=== PATIENT | male | born 2000 | race Caucasian/White ===

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

== ENCOUNTER 2020-07-16 21:26 | Emergency (ER) | payer OTHER, SELFPAY ==
[2020-07-16 21:32] VITALS: BP 140/82; PULSE 75; RESP 16; TEMP 36.6; O2SAT 100
--- NOTE | 2020-07-16 21:53 | ED.GENADULT ---
HPI - General Adult General Chief complaint: Skin/Abscess/Foreign Body Stated complaint: fishhook in leg Time Seen by Provider: 07/16/20 21:38 Source: patient History of Present Illness HPI narrative: Patient is a 19 y/o male complaining of fish hook stuck in his left lower leg less than 1 hour ago. He states that he tripped over a wire and the lure was stuck in his leg. He denies any other injury. Related Data Home Medications Medication Instructions Recorded Confirmed dextroamphetamine-amphetamine 07/23/19 Allergies Allergy/AdvReac Type Severity Reaction Status Date / Time No Known Allergies Allergy Unknown Verified 04/22/17 14:16 Review of Systems Constitutional: Constitutional: Denies chills, Denies fever(s), Denies headache(s) and Denies weakness Eyes: Eyes: Denies blurry vision ENT: Denies headache(s) and Denies neck pain Cardiovascular: Cardiovascular: Denies chest pain and Denies dyspnea Respiratory: Respiratory: Denies cough and Denies dyspnea Gastrointestinal: Gastrointestinal: Denies abdominal pain, Denies diarrhea, Denies nausea and Denies vomiting Genitourinary: Genitourinary: Denies hematuria and Denies dysuria Musculoskeletal: Musculoskeletal: Denies back pain and Denies neck pain Integumentary/Breasts: Skin/Breast: Reports other (hook stuck in left leg) Neurologic: Denies headache(s) and Denies weakness [facility] Family History Family History Other No active medical problems Social History Social History Smoking status: Never smoker Alcohol intake: never Exam Const: General: no acute distress and well developed Orientation/consciousness: oriented to person, oriented to place, oriented to time and patient oriented x3 HENMT: Head: normocephalic Eyes: General: appearance normal, both eyes and all related structures Conjunctivae: conjunctivae normal Skin: General skin exam: normal color and turgor normal Wounds: wounds noted (puncture wound left lower leg with hook stuck) Extrem: General: full ROM and no pedal edema Psych: Appearance: grossly normal Mental Status: mental status grossly normal Affect: normal affect Course Vital Signs Vital signs: Vital Signs Temperature 36.6 C 07/16/20 21:32 Pulse Rate 75 07/16/20 21:32 Respiratory Rate 16 07/16/20 21:32 Blood Pressure 140/82 07/16/20 21:32 Pulse Oximetry 100 07/16/20 21:32 Temperature 36.6 C 07/16/20 21:32 Pulse Rate 75 07/16/20 21:32 Respiratory Rate 16 07/16/20 21:32 Blood Pressure 140/82 07/16/20 21:32 Pulse Oximetry 100 07/16/20 21:32 Procedures Foreign Body Removal Foreign Body #1: Foreign Body Removal Date: 07/16/20 Foreign Body Removal Time: 21:50 Time Out Performed: yes Site: left Description of foreign body: fish hook Sedation/Analgesia: none Technique: incision made to facilitate removal Confirmed by:: direct visualization Complications: none Post-procedure exam: awake, alert Neurovascular: normal distal pulse Foreign Body Removal Narrative: 1% lidocaine is injected into puncture wound. Wound is enlarged with 18 G needle. The tip of hook is cut with pliers and hook is removed with forceps. Medical Decision Making Vital Signs Vital Signs: Vital Signs Temperature 36.6 C 07/16/20 21:32 Pulse Rate 75 07/16/20 21:32 Respiratory Rate 16 07/16/20 21:32 Blood Pressure 140/82 07/16/20 21:32 Pulse Oximetry 100 07/16/20 21:32 Temperature 36.6 C 07/16/20 21:32 Pulse Rate 75 07/16/20 21:32 Respiratory Rate 16 07/16/20 21:32 Blood Pressure 140/82 07/16/20 21:32 Pulse Oximetry 100 07/16/20 21:32 Discharge Plan Discharge Clinical Impression: Foreign body (FB) in soft tissue Fish hook injury of left lower leg Qualifiers: Encounter type: initial enc
[2020-07-16] MEDS: TETANUS,DIPHTHERIA,AC PERTUSSIS ADULT (0.5 ML) BOOSTRIX IM (21:56)
--- NOTE | 2020-07-16 22:08 | PC.NURSE ---
Fishing hook removed by NEVILLE Gonzales. Pt tolerated well. Wound cleaned with normal saline and dressed with antibiotic ointment and gauze.
== END 2020-07-16 22:09 | disposition home or self-care (01) ==
LOC: ANHED 22:06
PROVIDERS: Emergency Provider Emergency Medicine; PCP Pediatrics
DX: S80.852A Superficial foreign body, left lower leg, initial encounter (principal); W45.8XXA Other foreign body or object entering through skin, initial encounter; Z23 Encounter for immunization
CPT/HCPCS: 10120; 90471; 90715; 99283

== ENCOUNTER 2022-03-26 18:25 | Emergency (ER) | payer OTHER, SELFPAY ==
[2022-03-26 18:34] VITALS: BP 148/86; PULSE 80; RESP 16; TEMP 36.1; O2SAT 99
--- NOTE | 2022-03-26 19:07 | ED.ANIMALBIT ---
HPI - Animal Bite General Chief Complaint: Animal Bite Stated Complaint: DOG BITE Time Seen by Provider: 03/26/22 19:07 Source: patient Mode of arrival: ambulatory Limitations: no limitations History of Present Illness HPI narrative: 21-year-old male presents with complaint of dog bite to right lower leg. Patient states he was walking home and neighbor's dog bit him after his cousin pulled into driveway and started talking ordered. States that the or talking startled the dog. Per the neighbor the dog is up-to-date on vaccines. Patient's tetanus is up-to-date. Ambulatory with limp. Bleeding controlled on arrival. All systems reviewed and negative except as noted above. Related Data Allergies Allergy/AdvReac Type Severity Reaction Status Date / Time No Known Allergies Allergy Unknown Verified 03/26/22 19:19 Review of Systems Review of Systems: CONSTITUTIONAL: Denies fever, chills, or sweats. EYES: Denies visual changes, redness, or discharge. ENT: Denies rhinorrhea, congestion, sore throat, or otalgia. CARDIOVASCULAR: Denies chest pain, palpitations, or edema. RESPIRATORY: Denies cough or dyspnea. GASTROINTESTINAL: Denies abdominal pain, nausea, vomiting, or diarrhea. GENITOURINARY: Denies dysuria or hematuria. SKIN: Denies rash or itching. Reports dog bite to right lower leg. MUSCULOSKELETAL: Denies back pain, joint pain, or myalgia. NEUROLOGIC: Denies headache, numbness, or weakness. PSYCHIATRIC: Denies anxiety or depression. All other systems reviewed are negative, except as documented in HPI. PMFSH Family History Family History Other No active medical problems Social History Social History Smoking status: Never smoker Alcohol intake: never Living arrangements: with family Occupation/Education: student Comments At time of signature, agree with nursing past medical, surgical, social and family history. There is no relevant family history pertinent to the presenting complaint. Exam Narrative: GENERAL: This is a well-nourished, well-developed patient, in no apparent distress. HEAD: normocephalic, atraumatic. EYES: PERRL. Sclera clear/white. Vision is grossly intact. EARS: External ears normal NOSE: External nose normal NECK: Neck supple, non-tender without lymphadenopathy, masses or thyromegaly. CARDIOVASCULAR: Regular rate and rhythm without murmurs, gallops, or rubs. RESPIRATORY: Clear to auscultation. Breath sounds equal bilaterally. No wheezes, rales, or rhonchi. SKIN: warm, Dry, with no suspicious lesions or rash, good texture and turgor. Two superficial puncture wounds to right lower extremity. 1 anterior ankle and 1 posterior ankle. There is a no other anterior puncture that is approximately 1 cm x 0.5 cm. Adipose tissue noted. NEURO: awake, alert, and oriented to person, place and time. There were no obvious focal neurologic abnormalities. EXTREMITIES: No joint tenderness, effusion, or edema noted. Course Course Level of Care: Express Care Visit Vital Signs Vital signs: Vital Signs Temperature 36.1 C L 03/26/22 18:34 Pulse Rate 80 03/26/22 18:34 Respiratory Rate 16 03/26/22 18:34 Blood Pressure 148/86 H 03/26/22 18:34 Pulse Oximetry 99 03/26/22 18:34 Oxygen Delivery Room Air 03/26/22 18:34 Temperature 36.1 C L 03/26/22 18:34 Pulse Rate 80 03/26/22 18:34 Respiratory Rate 16 03/26/22 18:34 Blood Pressure 148/86 H 03/26/22 18:34 Pulse Oximetry 99 03/26/22 18:34 Oxygen Delivery Room Air 03/26/22 18:34 Reviewed Procedures Laceration Laceration 1: Date: 03/26/22 Time: 19:27 Site: lower extremity Side (If applicable): right Size (cm): 1 Description: irregular Depth: simple, single layer ====== Skin Level ====== Skin layer closed with: steri strips Number of espinoza
== END 2022-03-26 19:30 | disposition home or self-care (01) ==
PROVIDERS: Emergency Provider Nurse Practitioner Family; PCP Pediatrics
DX: S81.831A Puncture wound without foreign body, right lower leg, initial encounter (principal); S91.031A Puncture wound without foreign body, right ankle, initial encounter; W54.0XXA Bitten by dog, initial encounter
CPT/HCPCS: 99213; G0463